=== PATIENT | female | born 1975 | race Caucasian/White ===

== ENCOUNTER 2021-12-16 19:30 | Emergency (ER) | payer MEDICARE, MEDICAID, SELFPAY ==
--- NOTE | ~2021-12-16 | XR_ITS ---
EXAMINATION: XR CHEST CLINICAL INFORMATION: Seizure COMPARISON: Chest x-ray 02/21/2009 TECHNIQUE: Frontal view of the chest was obtained. FINDINGS: The lungs are clear. No airspace consolidation, pleural effusion, or pneumothorax. The cardiomediastinal silhouette is within normal limits. No acute osseous injury. XR/XR chest 1V IMPRESSION: Unremarkable examination.
[2021-12-16 19:48] VITALS: BP 105/71; BP 105/78; PULSE 78; PULSE 88; RESP 14; TEMP 36.7; O2SAT 100
[2021-12-16 20:37] LABS: MANUAL DIFF FLAG NO
--- NOTE | 2021-12-16 20:37 | ED.SEIZURE ---
HPI - Seizure General Chief Complaint: Seizure Stated Complaint: seizure Time Seen by Provider: 12/16/21 20:15 Source: patient, family and EMS Mode of arrival: EMS Limitations: physical limitation History of Present Illness HPI Narrative: 46-year-old female with a PMH of cognitive impairment, deafness, seizure disorder, PTSD, past aggression presenting via EMS with ticket chopper assembler after a witnessed seizure. Per ticket chopper assembler Florinda, patient had a very active day today and had [employer] for lunch including hamburger, fries, ice cream, and soda. On the car ride home, patient had 45 second witnessed seizure with contorted position and minimal responsiveness. Olericulture Professor pulled into driveway, and sat with patient for approximately 5 minutes while on the phone with 911. Patient remained minimally responsive at this time and was noted to be drooling. Upon arrival of EMS, patient began to become more responsive and was able to communicate via ALS with her ticket chopper assembler. Patient did vomit at this time. Olericulture Professor denies any recent illness, missed doses of medication. Olericulture Professor does report she suspects the active day in combination with increased caffeine intake may have been responsible. She states the patient has not had a witnessed seizure in 8-10 years. MD complaint: seizure Onset (ago): minute(s) Description of Episode: loss of consciousness and tonic-clonic movement Duration of episode: 45 Witnessed: Yes - by Bystander Trauma: No Seizure History: Yes Place: Home Possible Precipitating Event: other (caffiene and physical exertion) Associated symptoms: denies other symptoms Treatments prior to arrival: none Related Data Previous Rx's Medication Instructions Recorded nitrofurantoin 100 mg PO BID UTI #6 caps 12/16/21 monohydrate/macrocrystals 100 mg capsule (Macrobid) Allergies Allergy/AdvReac Type Severity Reaction Status Date / Time lorazepam [From Ativan] Allergy Unknown UNKNOWN Unverified 12/25/19 17:15 Review of Systems Review of Systems: due to cognitive impairment, patient unable to provide a review of systems. Does report stomach ache, which ticket chopper assembler says is a daily occurrence. PMF Social History Social History Advance Directives: No Advance Directives Information Provided: No Physical Exam Vital Signs: Vital Signs: Last Vital Signs Temp 98.0 F 12/16/21 19:48 Pulse 78 12/16/21 19:48 Resp 14 12/16/21 19:48 BP 105/78 12/16/21 19:48 Pulse Ox 100 12/16/21 19:48 O2 Del Method 12/16/21 19:48 BMI result Body Mass Index 20.0 Const: Other: Appearance: Alert. Oriented X3. No acute distress. Eyes: Pupils equal, round and reactive to light. ENT: Right side of tongue mildly edematous and bruised, not actively bleeding. Pharynx normal. Neck: Normal inspection. Neck supple. CVS: Normal heart rate and rhythm. Pulses normal. Respiratory: No respiratory distress. Breath sounds normal. Abdomen: Soft, nondistended and nontender. +BS x4 Skin: Skin warm and dry. Normal skin color. Normal skin turgor. No rashes. Extremities: No lower extremity edema. Neuro: Oriented X 3. No motor deficit. No sensory deficit. Deaf, communicating with ALS Course Course Course Narrative: 46-year-old female with a PMH of cognitive impairment, deafness, seizure disorder, PTSD, past aggression presenting via EMS with ticket chopper assembler after a witnessed seizure. on exam, patient alert and oriented communicating with the Burmese sign language with her ticket chopper assembler, YOLY. Right side of tongue noted to be mildly edematous and bruised, not actively bleeding, no laceration in need of repair. Possible UTI due to presence of leukocytosis esterase and urine WBC, will treat with 3 days of Macrobid. At this time, patient is stable for discharge home with ticket chopper assembler Florinda, with strict return instructions. Labs remarkable for WBC 4.6, HGB 11.4, HCT 32.8 UA remarkable for small leukocyte esterase, high a urine WBC, with 6-10 is squamous epithelial cells. Sample possibly contaminated. But will treat empirically while awaiting culture. XR chest 1V IMPRESSION: Unremarkable examination. MDM - Seizure Lab Data Result diagrams: 12/16/21 20:22 12/16/21 20:22 Labs: Lab Results 12/16/21 12/16/21 12/16/21 Range/Units 20:22 20:22 20:22 WBC 4.6 L (4.8-10.8) X10*3/uL RBC 3.48 L (4.20-5.50) X10*6/uL Hgb 11.4 L (12.0-16.0) g/dl Hct 32.8 L (37.0-47.0) % MCV 94.3 (80.0-98.0) fL MCH 32.8 (27.0-33.0) pg MCHC 34.8 (31.0-35.0) g/dl RDW 11.5 (11.0-16.0) % Plt Count 212 (160-400) X10*3/uL MPV 10.5 (9.4-12.3) fL Immature Gran % (Auto) 0.2 (0.0-0.4) % Neut % (Auto) 58.6 (45-73) % Lymph % (Auto) 24.8 (20-40) % Sumter % (Auto) 11.2 H (2-11) % Eos % (Auto) 3.9 (0-4) % Baso % (Auto) 1.3 (0-2) % Lymph # (Auto) 1.1 L (1.2-4.9) X10*3/uL Sumter # (Auto) 0.5 (0.1-1.2) X10*3/uL Eos # (Auto) 0.2 (0.0-0.4) X10*3/uL Baso # (Auto) 0.1 (0.0-0.2) X10*3/uL Abs Immat Gran (auto) 0.01 (0.00-0.03) X10*3/uL Absolute Neuts (auto) 2.7 (2.0-8.3) x10*3/uL Absolute Nucleated RBC 0.000 (0.0-0.012) X10*3/uL Nucleated RBC % (auto) 0.0 (0.0-0.2) /100WBC Sodium 138 (135-145) mmol/L Potassium 3.7 (3.3-5.1) mmol/L Chloride 101 (96-108) mmol/L Carbon Dioxide 28 (22-29) mmol/L Anion Gap 13 (12-20) BUN 14 (9-16) mg/dL Creatinine 0.74 (0.5-1.4) mg/dL Estim Creat Clear Calc 82.5 Estimated GFR > 60 Random Glucose 102 (60-115) mg/dL Calcium 9.7 (8.4-10.2) mg/dL Magnesium 2.1 (1.6-2.6) mg/dL Total Bilirubin 0.4 (0.0-1.0) mg/dL Direct Bilirubin 0.2 (0.0-0.5) mg/dL AST 16 (5-31) U/L ALT 11 (0-31) U/L Alkaline Phosphatase 73 (39-117) U/L Total Creatine Kinase 81 (26-140) U/L Total Protein 6.5 (6.5-8.0) g/dL Albumin 4.0 (3.5-5.0) g/dL Urine Color Urine Appearance Urine pH (5.0-9.0) Ur Specific [place] (1.005-1.025) Urine Protein (Neg-Trace) mg/dL Urine Glucose (UA) (Negative) mg/dL Urine Ketones (Negative) mg/dL Urine Blood (Negative) Urine Nitrite (Negative) Ur Leukocyte Esterase (Negative) Urine RBC (0-2) /HPF Urine WBC (0-5) /HPF Ur Squamous Epith Cells (0-2) /HPF Urine Bacteria (None Seen) Hyaline Casts (0-2) /LPF Urine Opiates Screen (Not Detect) Urine Fentanyl Screen (Not Detect) Ur Barbiturates Screen (Not Detect) Ur Phencyclidine Scrn (Not Detect) Ur Amphetamines Screen (Not Detect) U Benzodiazepines Scrn (Not Detect) Urine Cocaine Screen (Not Detect) U Marijuana (THC) Screen (Not Detect) COVID-19 (KEVIN) Negative (Negative) COVID-19 Clin Com See Note 12/16/21 12/16/21 Range/Units 21:00 21:00 WBC (4.8-10.8) X10*3/uL RBC (4.20-5.50) X10*6/uL Hgb (12.0-16.0) g/dl Hct (37.0-47.0) % MCV (80.0-98.0) fL MCH (27.0-33.0) pg MCHC (31.0-35.0) g/dl RDW (11.0-16.0) % Plt Count (160-400) X10*3/uL MPV (9.4-12.3) fL Immature Gran % (Auto) (0.0-0.4) % Neut % (Auto) (45-73) % Lymph % (Auto) (20-40) % Sumter % (Auto) (2-11) % Eos % (Auto) (0-4) % Baso % (Auto) (0-2) % Lymph # (Auto) (1.2-4.9) X10*3/uL Sumter # (Auto) (0.1-1.2) X10*3/uL Eos # (Auto) (0.0-0.4) X10*3/uL Baso # (Auto) (0.0-0.2) X10*3/uL Abs Immat Gran (auto) (0.00-0.03) X10*3/uL Absolute Neuts (auto) (2.0-8.3) x10*3/uL Absolute Nucleated RBC (0.0-0.012) X10*3/uL Nucleated RBC % (auto) (0.0-0.2) /100WBC Sodium (135-145) mmol/L Potassium (3.3-5.1) mmol/L Chloride (96-108) mmol/L Carbon Dioxide (22-29) mmol/L Anion Gap (12-20) BUN (9-16) mg/dL Creatinine (0.5-1.4) mg/dL Estim Creat Clear Calc Estimated GFR Random Glucose (60-115) mg/dL Calcium (8.4-10.2) mg/dL Magnesium (1.6-2.6) mg/dL Total Bilirubin (0.0-1.0) mg/dL Direct Bilirubin (0.0-0.5) mg/dL AST (5-31) U/L ALT (0-31) U/L Alkaline Phosphatase (39-117) U/L Total Creatine Kinase (26-140) U/L Total Protein (6.5-8.0) g/dL Albumin (3.5-5.0) g/dL Urine Color Yellow Urine Appearance Clear Urine pH 5.0 (5.0-9.0) Ur Specific [place] 1.015 (1.005-1.025) Urine Protein Negative (Neg-Trace) mg/dL Urine Glucose (UA) Negative (Negative) mg/dL Urine Ketones Negative (Negative) mg/dL Urine Blood Negative (Negative) Urine Nitrite Negative (Negative) Ur Leukocyte Esterase Small (1+) H (Negative) Urine RBC 0-2 (0-2) /HPF Urine WBC 11-20 H (0-5) /HPF Ur Squamous Epith Cells 6-10 (0-2) /HPF Urine Bacteria None Seen (None Seen) Hyaline Casts 0-2 (0-2) /LPF Urine Opiates Screen Not Detected (Not Detect) Urine Fentanyl Screen Not Detected (Not Detect) Ur Barbiturates Screen Not Detected (Not Detect) Ur Phencyclidine Scrn Not Detected (Not Detect) Ur Amphetamines Screen Not Detected (Not Detect) U Benzodiazepines Scrn Not Detected (Not Detect) Urine Cocaine Screen Not Detected (Not Detect) U Marijuana (THC) Screen Not Detected (Not Detect) COVID-19 (KEVIN) (Negative) COVID-19 Clin Com Critical Care Time Critical Care Time Critical Care Time: No Discharge Plan Discharge Clinical Impression: Generalized seizure, UTI (urinary tract infection) Patient Disposition: Home, Self-Care Instructions: Urinary Tract Infection in Women (ED), Recurrent Seizures in Adults (ED) Additional Instructions: Please take antibiotic as prescribed for urinary tract infection. Please follow-up with Neurology in the next 2-3 days. If you develop new or worsening symptoms call 911 or come back to the ER for further evaluation. Prescriptions: New nitrofurantoin monohyd/m-cryst [Macrobid] 100 mg capsule 100 mg PO BID Qty: 6 0RF Rx Instructions: must administer with a meal/food Interventions: ED Discharge Assessment Last Done: 12/16/21 22:08 Discharge Date/Time: 12/16/21 22:08
[2021-12-16 20:45] LABS: Basophils Absolute Auto 0.1 X10*3/uL (0.0-0.2); Basophils Percent Auto 1.3 % (0-2); Eosinophils Absolute Auto 0.2 X10*3/uL (0.0-0.4); Eosinophils Percent Auto 3.9 % (0-4); Hematocrit 32.8 % (37.0-47.0); Hemoglobin 11.4 g/dl (12.0-16.0); Imm Gran Abs Auto 0.01 X10*3/uL (0.00-0.03); Imm Gran Pct Auto 0.2 % (0.0-0.4); Lymphocytes Absolute Auto 1.1 X10*3/uL (1.2-4.9); Lymphocytes Percent Auto 24.8 % (20-40); Mean Corpuscular HGB Conc 34.8 g/dl (31.0-35.0); Mean Corpuscular Hemoglobin 32.8 pg (27.0-33.0); Mean Corpuscular Volume 94.3 fL (80.0-98.0); Mean Platelet Volume 10.5 fL (9.4-12.3); Monocytes Absolute Auto 0.5 X10*3/uL (0.1-1.2); Monocytes Percent Auto 11.2 % (2-11); Neutrophils Absolute Auto 2.7 x10*3/uL (2.0-8.3); Neutrophils Percent Auto 58.6 % (45-73); Platelet Count 212 X10*3/uL (160-400); Red Blood Count 3.48 X10*6/uL (4.20-5.50); Red Cell Distribution Width 11.5 % (11.0-16.0); White Blood Count 4.6 X10*3/uL (4.8-10.8)
[2021-12-16 20:54] LABS: Alanine Aminotransferase 11 U/L (0-31); Alkaline Phosphatase 73 U/L (39-117); Anion Gap 13 (12-20); Aspartate Amino Transferase 16 U/L (5-31); Bilirubin Direct 0.2 mg/dL (0.0-0.5); Bilirubin Total 0.4 mg/dL (0.0-1.0); Blood Urea Nitrogen 14 mg/dL (9-16); Calcium 9.7 mg/dL (8.4-10.2); Carbon Dioxide 28 mmol/L (22-29); Chloride 101 mmol/L (96-108); Creatinine Clr Calc Pharmacy 82.5; Estimated Glomerular Filt Rate > 60; Glucose Random 102 mg/dL (60-115); Magnesium 2.1 mg/dL (1.6-2.6); Potassium 3.7 mmol/L (3.3-5.1); Sodium 138 mmol/L (135-145); Total Protein 6.5 g/dL (6.5-8.0)
[2021-12-16 20:55] LABS: COVID-19 Test Negative (Negative); IDNOW Serial# 55D5AD1C
[2021-12-16] MEDS: 0.9 % Sodium Chloride 1,000 ML 999 ML IVCONT (21:05)
[2021-12-16 21:08] LABS: Appearance Urine Clear; Color Urine Yellow; Glucose Urine UA Negative (Negative); Leukocyte Esterase Urine Small (1+) (Negative); Nitrite Urine Negative (Negative); Specific Gravity - Urine 1.015 (1.005-1.025); Urine Blood Negative (Negative); Urine Ketones Negative (Negative); Urine Protein Negative (Neg-Trace)
[2021-12-16 21:13] LABS: Bacteria Urine None Seen (None Seen); Hyaline Casts Urine 0-2 /LPF (0-2); RBC Urine 0-2 /HPF (0-2); UACC Culture Trigger YES
[2021-12-16 21:27] LABS: Amphetamine Screen Urine Not Detected (Not Detect); Barbiturates, Urine Not Detected (Not Detect); Benzodiazepines Screen Urine Not Detected (Not Detect); Cannabinoid Screen Urine Not Detected (Not Detect); Cocaine Screen Urine Not Detected (Not Detect); Fentanyl, urine Not Detected (Not Detect); Opiate Screen Urine Not Detected (Not Detect); Phencyclidine Screen Urine Not Detected (Not Detect)
== END 2021-12-16 22:08 | disposition home or self-care (01) ==
PROVIDERS: Physician Assistant; Emergency Provider Emergency Medicine; PCP Nurse Practitioner Family
DX: R56.9 Unspecified convulsions (principal); N39.0 Urinary tract infection, site not specified; Z20.822 Contact with and (suspected) exposure to COVID-19; Z79.899 Other long term (current) drug therapy
CPT/HCPCS: 71045; 80048; 80076; 80307; 81001; 82550; 83735; 85025; 87086; 87635; 99283

== ENCOUNTER 2025-01-05 20:37 | Emergency (ER) | payer MEDICARE, MEDICAID, SELFPAY ==
[2025-01-05 20:42] VITALS: BP 93/52; PULSE 66; RESP 18; TEMP 36.3; O2SAT 97; BMI 19.2
--- OUTSIDE RECORDS SUMMARY | 2025-01-06 02:32 | XMS_ITS | Clinical Summary ---
Author Organization [facility] Address [address] [place] [phone] Phone Care Team Providers Care Assistant Buyer Name Role Phone Jean Brennan MD Unavailable Tera Mccollum MD Primary Care Provider [phone] Allergies Active Allergy Reactions Criticality Noted Date Comments Feathers Unknown 02/24/2016 Lorazepam Unknown 02/24/2016 Medications risperiDONE (RISPERDAL) 1 MG tablet Take 1 mg by mouth daily. Active lamoTRIgine (LAMICTAL) 100 MG IMMEDIATE release tablet Take 100 mg by mouth 2 (two) times a day. Active clonazePAM (KLONOPIN) 1 MG tablet 1/2 tab qam and 1 tab qhs 11/07/19 24 Active omeprazole (PRILOSEC) 20 MG capsuleIndicat ions:Gastroeso phageal reflux disease Take 1 capsule (20 mg total) by mouth daily. 90 capsule 3 12/25/19 25 Active clonazePAM (KLONOPIN) 0.5 MG tablet Take 0.5 mg by mouth nightly at bedtime. at bedtime. And PRN 06/23/19 23 025 Discontinued omeprazole (PRILOSEC) 20 MG capsuleIndicat ions:Gastroeso phageal reflux disease Take 1 capsule by mouth once daily 90 capsule 07/15/19 25 025 Discontinued(Re order) Active Problems Problem Noted Date Diagnosed Date Dyslipidemia 12/24/2024 Assessment & Plan (12/24/2024 8:38 AM EDT): Thank going yearly assessment of cholesterol panel. Regurgitant esophagitis 12/24/2024 Routine general medical exam ination at a health care facility 12/19/2023 Assessment & Plan (12/24/2024 8:38 AM EDT): Overall she is doing quite well, the omeprazole might not be helping with the regurgitation. Will refer the patient to gastroenterology to further investigate for example performing EGD. Mostly its postprandial regurgitation. The rest of the exam is unremarkable. Assessment & Plan (12/19/2023 3:36 PM EDT): Exam only positive for rhinorrhea, no erythema of of the throat or oropharynx, health maintenance otherwise up-to-date. We can reassess labs next year on repeat physical. Rhinorrhea 12/19/2023 Assessment & Plan (12/19/2023 3:37 PM EDT): Rhinorrhea and low-grade fever, check RSV, COVID 19 and flu and will call back to the attended if positive. Gastroesophageal reflux disease 07/17/2022 Assessment & Plan (07/17/2022 1:58 AM EDT): Continue omeprazole History of meningitis 11/03/2021 Onychomycosis 11/03/2021 Umbilical hernia without obstruction and without gangrene 03/11/2020 Assessment & Plan (03/11/2020 12:04 PM EST): Continue to monitor Seizure disorder 04/10/2017 Assessment & Plan (12/24/2024 8:37 AM EDT): Will obtain a lamotrigine level today and we can share this with the neurology team. Assessment & Plan (12/19/2023 3:37 PM EDT): Seizure disorder managed by Dr. Kuo from [facility] neurology. Assessment & Plan (07/17/2022 1:58 AM EDT): Check labs today. Await neuro consult Assessment & Plan (03/11/2020 12:05 PM EST): Stable, no recent seizure Uterine fibroid Premenstrual dysphoric disorder Pervasive developmental disorder Assessment & Plan (12/14/2020 1:09 PM EDT): After review of the chart and assessment of the patient we cannot find any acute or chronic changes within the past year and certify that the patient's medical issues are unchanged from previous. Mental disability History of obesity Deafness Overview (04/09/2017): s/p meningitis in infancy PTSD (post-traumatic stress disorder) Assessment & Plan (07/17/2022 1:58 AM EDT): Continue regular follow up with psychiatry Assessment & Plan (03/11/2020 12:04 PM EST): Stable, improved with getting back to regular routine Encounters Date Type Department Care Team Description 12/24/2024 8:45 AM EDT - 12/24/2024 11:59 PM EDT Hospital Encounter [facility] [address] [place] [address] Tera Mccollum MD Discharge Disposition: Home or Self Care 12/24/2024 8:00 AM EDT Office Visit [facility] [address] [place] [address] Tera Mccollum MD Need for hepatitis C screening test (Primary Dx); Screening for human immunodeficiency virus; Routine general medical examination at a health care facility; Seizure disorder; Dyslipidemia; Regurgitant esophagitis from Last 3 Months Immunizations Immunization Administration Dates Next Due COVID-19 (Pre-01/29) Pfizer Vaccine, mRNA, PF 06/28/2020,06/15/2020 INFLUENZA, SPLIT VIRUS, TRIVALENT PF 12/24/2024, 02/24/2016 INFLUENZA, SPLIT VIRUS, TRIV ALENT W/ PRESERVATIVE IM 02/25/2013,12/21/2011 Influenza Quadrivalent Prese rvative Free IM 03/11/2020,04/10/2017,02/03/2015,2013 Influenza, Unspecified Formulation 01/04/2011,,02/26/2007 Tdap 03/11/2020 Family History Medical History Relation Comments Asthma Brother Cancer Father unsure what kind Asthma Mother Eczema Mother Hypotension Mother Suicide Nephew 2017 Relation Status Comments Brother Alive Father Mother Nephew Social History Tobacco Use Types Packs/Day Years Used Date Smoking Tobacco: Never Passive Smoke Exposure: Never Smokeless Tobacco: Never Alcohol Use Standard Drinks/Week Comments No 0 (1 standard drink = 0.6 oz pur e alcohol) Education Answer Date Recorded Are you interested in more education? Not on ahmet e 08/11/2022 Are you concerned about learning? Not on file 08/11/2022 No 08/11/2022 No 08/11/2022 Digital Access Answer Date Recorded No 09/01/2022 No 09/01/2022 Reliable internet access at home? Not on file 09/01/2022 Device with a working camera? Not on file Intimate Partner Violence Answer Date R ecorded Denied Basic Needs Not on file 12/24/2024 In the past 12 months have y ou been in a relationship with a person who hurts, threatens, or tries to control you? No 12/24/2024 Worried food would run out Not on file 12/24 In the past 12 months have y ou been in a relationship with a person who hurts, threatens, or tries to control you? No 12/24/2024 Comments Unknown Sex and Gender Information Value Date Recorded Sex Assigned at Not on file Legal Sex Female 6:22 PM EST Gender Identity Not on file Sexual Orientation Not on file Last Filed Vital Signs Vital Sign Reading Time Taken Comments Blood Pressure 110/60 12/24/2024 7:50 AM EDT Pulse 75 12/24/2024 7:50 AM EDT Temperature 37.3 C (99.1 F) 12/19/2023 2:49 PM EDT Respiratory Rate 16 12/24/2024 7:50 AM EDT Oxygen Saturation 99% 12/24/2024 7:50 AM EDT Inhaled Oxygen Concentration - - Weight 51.8 kg (114 lb 3.2 oz) 12/24/2024 7:50 A M EDT Height 162 cm (5' 3.78 ) 12/24/2024 7:50 AM EDT Body Mass Index 19.74 12/24/2024 7:50 AM EDT Plan of Treatment Upcoming Encounters Date Type Department Care Team (Late st Contact Info) Description 12/25/2025 8:30 AM EDT Office Visit [facility] [address] [place] [address] Tera Mccollum MD [address] [place] [address] Health Maintenance Due Date Last Done Comments COLOGUARD 2021 FIT TEST 2021 FOBT 2021 SIGMOIDOSCOPY 2021 VIRTUAL COLONOSCOPY 2021 COVID-19 VACCINE ( season) 2024 06/28/2020, 06/15/2020, 05/24/2020 DEPRESSION SCREENING 12/24/2025 12/24/2024 MAMMOGRAM 12/24/2025 12/25/2023, 10/08, 07/21/2021, Additional history exists PAP SMEAR 12/30/2025 12/30/2020, 11/0 04/2016, 03/09/2014 LIPID PANEL 12/24/2029 12/24/2024, 050 11/2018, 08/14/2018, Additional history exists Adult Td,Tdap Booster 03/11/2030 03/11/2020 COLONOSCOPY 11/12/2033 11/13/2023, 11/13/2023 COLORECTAL CANCER SCREENING 11/12/2033 HIV ONE-TIME SCREENING (18-65 YEARS) 12/24/2034 Postponed from 1994 (Not Clinically Appropriate) HEPATITIS C SCREENING 12/25/2035 Postpo leann from 1994 (Not Clinically Appropriate) INFLUENZA VACCINE Completed 12/24/2024, , 03/11/2020, Additional history exists SMOKING STATUS SCREENING (Once After 26 Yrs) Completed 12/24/2024 HEPATITIS A VACCINES Aged Out No long er eligible based on patient's age to complete this topic HIB VACCINES Aged Out No longer eligi ble based on patient's age to complete this topic MENINGOCOCCAL VACCINES (ACWY) Aged Out No longer eligible based on patient's age to complete this topic MENINGOCOCCAL VACCINES (B) Aged Out N o longer eligible based on patient's age to complete this topic PNEUMOCOCCAL VACCINES (0-49 years) Aged Out No longer eligible based on patient's age to complete this topic Medical Devices Not on file Procedures Procedure Name Priority Date/Time Associated Diagnosis Comments LIPID PANEL Routine 12/24/2024 8:45 AM EDT Routine general medical examination at a [facility] Dyslipidemia COMPREHENSIVE METABOLIC PANEL Routine 12/24/2024 8:45 AM EDT Routine general medical examination at a [facility] facility LAMOTRIGINE LEVEL Routine 12/24/2024 8:4 5 AM EDT Seizure disorder MAMMOGRAPHY Routine 12/25/2023 1:54 PM EDT COLONOSCOPY FOR RESULT ENTRY ONLY Routine 11/13/2023 1:02 PM EDT PAP TEST Routine 12/30/2020 from Last 3 Months or Most Recently Relevant to Health Maintenance Results * Comprehensive metabolic panel (12/24/2024 8:45 AM EDT) SODIUM 141 133 - 146 mmol/L [facility] POTASSIUM 4.9 3.3 - 5.1 mmol/L [facility] CHLORIDE 106 96 - 108 mmol/L [facility] CO2 27 21 - 35 mmol/L [facility] BUN 11 6 - 19 mg/dL [facility] CREATININE 0.60 0.5 - 1.5 mg/dL [facility] GLUCOSE 82 70 - 99 mg/dL [facility] ALBUMIN 4.5 3.9 - 4.8 g/dL [facility] TOTAL PROTEIN 7.6 6.5 - 8.0 g/dL [facility] CALCIUM 10.1 8.4 - 10.3 mg/dL [facility] ALKALINE PHOSPHATASE 113 39 - 117 U/L [facility] TOTAL BILIRUBIN 0.3 0.0 - 1.2 mg/dL [facility] AST 20 0 - 37 U/L [facility] ALT 9 0 - 40 U/L [facility] GLOBULIN 3.1 1 - 4.8 g/dL [facility] EGFR 111 >59 mL/min/1.7 3m2 [facility] Comment:Estimated glomerular filtration rate calculated using the CKD-EPI refit equation. ANION GAP 13 10 - 20 mmol/L [facility] Blood 12/24/2024 8:45 AM EDT 12/24/2024 8:52 AM EDT Tera Mccollum MD LAB BLOOD ORDERABLES Final Resul t Performing Organization Address City/[facility] Co de Phone Number [address] [address] * (ABNORMAL) Lamotrigine level (12/24/2024 8:45 AM EDT) LAMOTRIGINE 2.5(L) 4.0 - 18.0 mcg/mL [facility] Comment:This test was develo ped and its performance characteristics determined by the [facility]. It has not been cleared or approved by the US Food and Drug Administration. This laboratory is certified under CLIA as qualified to perform high complexity clinical laboratory testing. Blood 12/24/2024 8:45 AM EDT 12/24/2024 8:52 AM EDT us Tera Mccollum MD LAB BLOOD ORDERABLES Final Resul t [address] [address] * (ABNORMAL) Lipid panel (12/24/2024 8:45 AM EDT) HDL 75 mg/dL [facility] Comment: Interpretation <40 mg/dL: Low HDL cholesterol (major risk factor for CHD) Greater than or equal to 60 mg/dL: High HDL cholesterol ( negative risk factor for CHD) HDL - cholesterol is affected by a number of factors, e.g. smoking, excerise, hormones, sex and age. CHOLESTEROL 201 0 - 240 mg/dL [facility] TRIGLYCERIDES 58 30 - 160 mg/dL [facility] LDL 114 50 - 129 mg/dL [facility] Comment: LDL levels in terms of risk for coronary heart disease: <100 mg/dL: Optimal 100-129 mg/dL: Near or above optimal 130-159 mg/dL: Borderline high 160-189 mg/dL: High >190 mg/dL: Very High CARDIAC RISK RATIO 2.7(L) 3.3 - 4.4 [facility] Blood 12/24/2024 8:45 AM EDT 12/24/2024 8:52 AM EDT Tera Mccollum MD LAB BLOOD ORDERABLES Final Resul t [facility] [address] [place] [address] * HM MAMMOGRAPHY FOR RESULT ENTRY ONLY (12/25/2023 1:54 PM EDT) Tera Mccollum MD HEALTH MAINTENANCE Final Result * HM COLONOSCOPY FOR RESULT ENTRY ONLY (11/13/2023 1:02 PM EDT) Historical [facility] HE[facility] MAINTENANCE Edited Result - Final * Pap Test (12/30/2020) Result - External See Scanned Results Comment:NILM, HPV neg Historical [facility] CYTOLOGY ORDERABLES Edite d Result - Final from Last 3 Months or Most Recently Relevant to Health Maintenance Insurance MEDICARE PART A & B Member Subscriber Plan / Payer (Ef fective 1999-Present) Name:Eva Tony Member ID:[id number] Relation to Subscriber:Self Name:Eva Tony Subscriber ID:[id number] Payer ID:[id number] Group ID:Not on file Type:Medicare Address: [employer] [address] [place] [address] [place] B Member Subscriber Plan / Payer ( fective 1999-) Name:Eva Tony Member ID:[id number] Relation to Subscriber:Self Name:Eva Tony Subscriber ID:[id number] Payer ID:[id number] Group ID:Not on file Type:Medicare Address: [employer] [address] [place] [phone] [facility] MEDICARE PART A & B [place] [facility] Member Subscriber Plan / Payer (Ef fective 1999-Present) Name:Eva Tony Member ID:[id number] Relation to Subscriber:Self Name:Eva Tony Subscriber ID:[id number] Payer ID:[id number] Group ID:Not on file Type:Medicare Address: [employer] [address] [place] [address] [place] PART A [place] B Member Subscriber Plan / Payer (Ef fective 1999-Present) Name:Eva Tony Member ID:[id number] Relation to Subscriber:Self Name:Eva Tony Subscriber ID:[id number] Payer ID:[id number] Group ID:Not on file Type:Medicare Address: [employer] [address] [place] [address] [place] PART A & B Member Subscriber Plan / Payer ( fective 1999-Present) Name:Eva Tony Member ID:[id number] Relation to Subscriber:Self Name:Eva Tony Subscriber ID:[id number] Payer ID:[id number] Group ID:Not on file Type:Medicare Address: [employer] [address] [place], [place] [address]HEALTH MEDICARE PART A & B Member Subscriber Plan / Payer ( fective 1999-Present) Name:Eva Tony Member ID:[id number] Relation to Subscriber:Self Name:Eva Tony Subscriber ID:[id number] Payer ID:[id number] Group ID:Not on file Type:Medicare Address: [employer] [address] [place], [place] [id number] [place], [place] [address]HEALTH MEDICARE PART A & B [facility] Care Teams Assistant Buyer Relationship Specialty Start Date End Date Tera Mccollum MD [address] [place] [address] PCP - General Internal Medicine 09/18/22 Jean Brennan MD [address] [place] [address] Psychiatry 07/21/21 Additional Source Comments The information contained in this document represents components of the legal health record. It is not the complete legal health record.[facility]
--- NOTE | 2025-01-06 03:06 | ED.GENADULT ---
HPI - General Adult General Chief complaint: Wound/Laceration Stated complaint: blister lt foot, opened up & wont stop bleeding Time Seen by Provider: 01/06/25 02:19 Source: family Limitations: other (Hearing and vision impaired) History of Present Illness ED Provider: Mercedes Moon PA-C HPI narrative: 49-year-old female who is both hearing and visually impaired, presents with her caregiver with a bleeding blister on the sole of her left foot. Per her caregiver, they were unable to control the bleeding at home. No one was aware that she had a blister on the bottom of the foot. She is not on a blood thinner. Related Data Previous Rx's ?Medication ?Instructions ?Recorded nitrofurantoin 100 mg PO BID UTI #6 caps 12/16/21 monohydrate/macrocrystals 100 mg capsule (Macrobid) Allergies Allergy/AdvReac Type Severity Reaction Status Date / Time lorazepam (From Ativan) Allergy Unknown UNKNOWN Verified 01/05/25 20:48 Review of Systems Review of Systems: Yes all other systems are reviewed and are negative Constitutional: Constitutional: Denies fatigue and Denies fever(s) Musculoskeletal: Musculoskeletal: Denies arthralgias and Denies joint swelling Integumentary/Breasts: Skin/Breast: Denies erythema, Denies skin swelling, Denies skin ulcer, Denies sores and Denies wounds Endocrine: Endocrine: Denies fatigue PMFSH Past Medical History Attestation statement: The following information was validated with the patient. Social History Social History Unable to assess alcohol history related to: Unknown Smoked in Last 30 Days: No Use of substances other than those prescribed or required for medical reasons: Unknown Advance Directives: No Advance Directives Information Provided: Yes Physical Exam ED Vital Signs: Vital Signs - 24 hr 01/05/25 20:42 Temperature 97.3 F Pulse Rate 66 Respiratory Rate 18 Blood Pressure 93/52 L Pulse Oximetry 97 Oxygen Delivery Method Room Air BMI result Body Mass Index 19.2 Const Other: Alert well-appearing Resp Effort & Inspection: normal respiratory effort Cardio Other: Normal peripheral perfusion Skin Other: Warm dry no rash Neuro General: gait normal Extrem Other: There is a blister that has ruptured on the plantar surface of the left foot, inferior to the 4th toe, no longer bleeding no overlying erythema, warmth or purulence from the site. Psych Other: Cooperative Medical Decision Making Medical Decision Making MDM Narrative: 49-year-old female who is both hearing and visually impaired, presents with her caregiver with a bleeding blister on the sole of her left foot. Per her caregiver, they were unable to control the bleeding at home. No one was aware that she had a blister on the bottom of the foot. She is not on a blood thinner. No relevant chronic issues History: Per the caregiver I have considered the following differential diagnoses: Ulcer, blister, laceration, puncture wound, excoriation, cellulitis, purulent cellulitis Plan: It appears the patient had a blood blister that ruptured, it is not bleeding, the area was cleaned and dressed with clean gauze dressing. No indication for imaging or labs. Differential Diagnosis Differential Diagnoses: The differential diagnosis associated with the presentation includes See medical decision-making Admission/Observation Consideration of admission/observation: Escalation of care including admission/observation considered Not applicable Discharge Plan Discharge Clinical Impression: Blister of foot, right Patient Disposition: Home, Self-Care Instructions: Blister (ED) Additional Instructions: The blister was covered with a gauze dressing. The bleeding has stopped. See home care instructions. Keep the site clean and dry. Follow up with primary care as needed. I would leave this initial dressing on for at least a full day. Prescriptions: No Action nitrofurantoin monohyd/m-cryst [Macrobid] 100 mg capsule 100 mg PO BID Qty: 6 0RF Rx Instructions: must administer with a meal/food Interventions: ED Discharge Assessment Last Done: 01/06/25 03:41 Discharge Date/Time: 01/06/25 03:30 Print Language: [place] Sign Language
[2025-01-06 03:27] VITALS: BP 106/64; PULSE 75; RESP 18; TEMP 36.3; O2SAT 100
[2025-01-06 03:41] VITALS: BP 106/64; PULSE 75; RESP 18; TEMP 36.3; O2SAT 100
== END 2025-01-06 03:30 | disposition home or self-care (01) ==
PROVIDERS: Emergency Provider Emergency Medicine; PCP Internal Medicine
DX: S90.821A Blister (nonthermal), right foot, initial encounter (principal); X58.XXXA Exposure to other specified factors, initial encounter; Y93.9 Activity, unspecified; Y92.9 Unspecified place or not applicable
CPT/HCPCS: 99282; 99284

== ENCOUNTER 2025-03-20 21:06 | Emergency (ER) | payer MEDICARE, MEDICAID, SELFPAY ==
--- NOTE | ~2025-03-20 | XR_ITS ---
CLINICAL HISTORY: infection osteo? Left foot three views Comparison: None provided Findings: No acute fracture or dislocation. No focal bony abnormality. No radiopaque foreign body. Impression: No acute bony abnormality This document has been electronically signed by: Brandon Smith MD on 03/20/2025 23:16:05
[2025-03-20 21:33] VITALS: BP 98/62; PULSE 68; RESP 18; TEMP 36.3; O2SAT 100; BMI 19.6
--- OUTSIDE RECORDS SUMMARY | 2025-03-20 22:53 | XMS_ITS | Clinical Summary ---
Author Organization [facility] Address [address] [place] [address] Phone Care Team Providers Care Contract Engineer Name Role Phone Jean Brennan MD Unavailable [phone] Tera Mccollum MD Primary Care Provider [phone] Allergies Active Allergy Reactions Criticality Noted Date Comments Feathers Unknown 02/24/2016 Lorazepam Unknown 02/24/2016 Medications risperiDONE (RISPERDAL) 1 MG tablet Take 1 mg by mouth daily. Active lamoTRIgine (LAMICTAL) 100 MG IMMEDIATE release tablet Take 100 mg by mouth 2 (two) times a day. Active clonazePAM (KLONOPIN) 1 MG tablet 1/2 tab qam and 1 tab qhs 11/07/2023 Active omeprazole (PRILOSEC) 20 MG capsuleIndicati ons:Gastroesoph ageal reflux disease Take 1 capsule (20 mg total) by mouth daily. 90 capsule 3 12/24/2024 Active Active Problems Problem Noted Date Diagnosed Date [...] Seizure disorder managed by Dr. Kuo from [facility] neurology. Assessment & Plan (07/17/2022 1:58 AM [...] 12/24/2024 11:59 PM EDT Hospital Encounter [facility] [address] [facility] [address] Tera Mccollum MD Discharge Disposition: Home or Self Care 12/24/2024 8:00 AM EDT Office Visit [facility] Internal Medicine [address] [facility] [place] [address] Tera Mccollum MD Need for hepatitis C [...] Mother Eczema Mother Hypotension Mother Suicide Nephew 2016 Relation Status Comments Brother Alive Father Mother [...] Description 12/25/2025 8:30 AM EDT Office Visit [facility] Internal Medicine [address] [place] [address] Tera Mccollum MD [address] [place] [address] [email or web address] Maintenance Due Date Last Done Comments COLOGUARD 2021 FIT TEST 2021 FOBT 2021 SIGMOIDOSCOPY 2021 VIRTUAL COLONOSCOPY 2021 COVID-19 VACCINE (2024- season) 2024 06/28/2020, 06/15/2020, 05/24/2020 DEPRESSION SCREENING 12/24/2025 12/24/2024 MAMMOGRAM 12/24/2025 12/25/2023, 10/08, 07/21/2021, Additional history exists PAP SMEAR 12/30/2025 12/30/2020, 110 04/2016, 03/09/2014 LIPID PANEL 12/24/2029 12/24/2024, 050 [...] EDT Routine general medical examination at a health care facility Dyslipidemia COMPREHENSIVE METABOLIC PANEL (CMP) Routine 12/24/2024 8:45 AM EDT Routine general medical examination at a health care facility LAMOTRIGINE LEVEL Routine 12/24/2024 8:4 5 AM EDT Seizure disorder HM MAMMOGRAPHY Routine 12/25/2023 1:54 PM EDT COLONOSCOPY FOR RESULT ENTRY ONLY Routine 11/13/2023 1:02 PM EDT PAP TEST Routine 12/30/2020 from Last 3 Months or Most Recently Relevant to Health Maintenance Results * Comprehensive metabolic panel (12/24/2024 8:45 AM EDT) SODIUM 141 133 - 146 mmol/L [facility] POTASSIUM 4.9 3.3 - 5.1 mmol/L [facility] CHLORIDE 106 96 - 108 mmol/L [facility] CO2 27 21 - 35 mmol/L [facility] BUN 11 6 - 19 mg/dL [facility] CREATININE 0.60 0.5 - 1.5 mg/dL [facility] GLUCOSE 82 70 - 99 mg/dL [facility] ALBUMIN 4.5 3.9 - 4.8 g/dL [facility] TOTAL PROTEIN 7.6 6.5 - 8.0 g/dL [facility] CALCIUM 10.1 8.4 - 10.3 mg/dL [facility] ALKALINE PHOSPHATASE 113 39 - 117 U/L [facility] TOTAL BILIRUBIN 0.3 0.0 - 1.2 mg/dL [facility] AST 20 0 - 37 U/L [facility] ALT 9 0 - 40 U/L [facility] GLOBULIN 3.1 1 - 4.8 g/dL [facility] EGFR 111 >59 mL/min/1.7 3m2 [facility] Comment:Estimated glomerular filtration rate calculated using the CKD-EPI refit equation. ANION GAP 13 10 - 20 mmol/L [facility] Blood 12/24/2024 8:45 AM EDT 12/24/2024 8:52 AM EDT us Tera Mccollum MD LAB BLOOD BKR ORDERABLES Final R esult Performing Organization Address City/[facility]/ZIP Co de Phone Number [facility] [address] [place] [address] * (ABNORMAL) Lamotrigine level (12/24/2024 8:45 AM EDT) LAMOTRIGINE 2.5(L) 4.0 - 18.0 mcg/mL [facility] Comment:This test was develo ped and its performance characteristics determined by the [facility]. It has not been cleared or approved by the US Food and Drug Administration. This laboratory is certified under CLIA as qualified to perform high complexity clinical laboratory testing. Blood 12/24/2024 8:45 AM EDT 12/24/2024 8:52 AM EDT us Tera Mccollum MD LAB BLOOD BKR ORDERABLES Final R esult Performing Organization Address City/[facility]/ZIP Co de Phone Number [address] [address] * (ABNORMAL) Lipid panel (12/24/2024 8:45 AM EDT) HDL 75 mg/dL [facility] Comment: Interpretation <40 mg/dL: Low HDL cholesterol (major risk factor for CHD) Greater than or equal to 60 mg/dL: High HDL cholesterol ( negative risk factor for CHD) HDL - cholesterol is affected by a number of factors, e.g. smoking, excerise, hormones, sex and age. CHOLESTEROL 201 0 - 240 mg/dL [facility] TRIGLYCERIDES 58 30 - 160 mg/dL [facility] LDL 114 50 - 129 mg/dL [facility] Comment: LDL levels in terms of risk for coronary heart disease: <100 mg/dL: Optimal 100-129 mg/dL: Near or above optimal 130-159 mg/dL: Borderline high 160-189 mg/dL: High >190 mg/dL: Very High CARDIAC RISK RATIO 2.7(L) 3.3 - 4.4 C [facility] Blood 12/24/2024 8:45 AM EDT 12/24/2024 8:52 AM EDT Tera Mccollum MD LAB BLOOD BKR ORDERABLES Final R esult [address] [address] * MAMMOGRAPHY FOR RESULT ENTRY ONLY (12/25/2023 1:54 PM EDT) Tera Mccollum MD HEALTH MAINTENANCE Final Result * HM COLONOSCOPY FOR RESULT ENTRY ONLY (11/13/2023 1:02 PM EDT) Historical Provider HEALTH MAINTENANCE Edited Result - Final * Pap Test (12/30/2020) Result - External See Scanned Results Comment:NILM, HPV neg Historical Provider CYTOLOGY ORDERABLES Edite d Result - Final from Last 3 Months or Most Recently Relevant to Health Maintenance Insurance [place] [id number] [facility] MEDICARE PART A & B [facility] MEDICARE PART A & B [facility] MEDICARE PART A & B [facility] MEDICARE PART A & B [place] MED[place] PART A & [facility] B Member Subscriber Plan / Payer ( fective 1999-) Name:Eva Tony Member ID:[id number] Relation to Subscriber:Self Name:Eva Tony Subscriber ID:[id number] Payer ID:[id number] Group ID:Not on file Type:Medicare Address: [facility] [employer]vas [facility] [address] [place] [address] [place] MEDICARE PART A & B [facility] B [facility] Care Teams Contract Engineer Relationship Specialty Start Date End Date Tera Mccollum MD [address] [place] [id number] PCP - General Internal Medicine 09/18/22 Jean Brennan MD [address] [place] [id number] Psychiatry 07/21/21 Additional Source Comments The information contained in this document represents components of the legal health record. It is not the complete legal health record.[facility]
--- NOTE | 2025-03-20 23:17 | ED_ITS ---
HPI - General Adult General Chief complaint: Extremity Problem Stated complaint: lt foot sore Time Seen by Provider: 03/20/25 22:30 Source: other (Caregiver) Limitations: other (Mental and physical impairment) History of Present Illness ED Provider: Mercedes Moon PA-C HPI narrative: 49-year-old female who is both hearing and visually impaired, presents with her caregiver with a bleeding blister on the sole of her left foot. Patient was seen in December for a blood blister on the bottom of the left foot. Today, the patient's caregiver noticed bleeding at the same site, however, it appears that there is a potential growth at the site that has bleeding. Related Data Previous Rx's ?Medication ?Instructions ?Recorded nitrofurantoin 100 mg PO BID UTI #6 caps monohydrate/macrocrystals 100 mg capsule (Macrobid) Allergies Allergy/AdvReac Type Severity Reaction Status Date / Time lorazepam (From Ativan) Allergy Unknown UNKNOWN Verified 03/20/25 21:35 Review of Systems Review of Systems: Unable to obtain secondary to the patient is both mentally and physically empiric Yes all other systems are reviewed and are negative PMFSH Past Medical History Attestation statement: The following information was validated with the patient. Social History Social History Advance Directives: No Advance Directives Information Provided: No Physical Exam ED Vital Signs: Vital Signs - 24 hr 03/20/25 21:33 03/21/25 00:28 Temperature 97.4 F 97.4 F Pulse Rate 68 68 Respiratory Rate 18 18 Blood Pressure 98/62 98/62 Pulse Oximetry 100 100 Oxygen Delivery Method Room Air Room Air BMI result Body Mass Index 19.6 Const Other: Alert Orientation/consciousness: oriented to person Resp Effort & Inspection: normal respiratory effort Cardio Other: Normal peripheral perfusion Skin Other: Warm dry no rash Neuro General: oriented to person and no focal motor deficits Extrem Other: Fleshy bleeding lesion on the plantar aspect of the left foot inferior to the 4th toe Psych Other: Cooperative, flat affect Procedures Laceration Laceration 1: Site: lower extremity Side (If applicable): left Size (cm): 1 Description: irregular Depth: simple, single layer Local Anesthetic: lidocaine 1% and with epi Amount of anesthesia used (mL): 2 Skin layer closed with: nylon Size (cm): 3-0 Number of sutures: 2 Technique: simple, interrupted Medical Decision Making Medical Decision Making [facility] Narrative: 49-year-old female who is both hearing and visually impaired, presents with her caregiver with a bleeding blister on the sole of her left foot. Patient was seen in December for a blood blister on the bottom of the left foot. Today, the patient's caregiver noticed bleeding at the same site, however, it appears that there is a potential growth at the site that has bleeding. Problem: Mental and physical impairment History: Per the caregiver I have considered the following differential diagnoses: Plantar wart, blister, hematoma, callus, laceration, osteomyelitis, ulceration Plan: I saw the patient when she was 1st assessed in December for similar presentation. At that time, she simply had a blister that was bleeding. Now, it appears as if she has some sort of lesion, perhaps it is a wart. The surface portion of the lesion essentially tore off, I was able to close the skin around the remainder of the lesion, she can follow up with Podiatry. I did obtain a screening x-ray, there was no evidence of osteomyelitis. I have independently reviewed the following tests: Left foot x-ray:Findings: No acute fracture or dislocation. No focal bony abnormality. No radiopaque foreign body. Impression: No acute bony abnormality Differential Diagnosis Differential Diagnoses: The differential diagnosis associated with the presentation includes See [facility] Admission/Observation Consideration of admission/observation: Escalation of care including admission/observation considered Not applicable Radiology Impression Discussion of test interpretation with radiology: I have reviewed the radiologist's reading. Discharge Plan Discharge Clinical Impression: Foot lesion Patient Disposition: Home, Self-Care Additional Instructions: It appears you have a growth on the bottom of the left foot. Two sutures were placed to control the bleeding. You need to follow up with Podiatry, I am providing you with a 1 of our contacts. Call Sunday to make an appointment. The stitches can be removed in 2 days. Prescriptions: No Action nitrofurantoin monohyd/m-cryst [Macrobid] 100 mg capsule 100 mg PO BID Qty: 6 0RF Rx Instructions: must administer with a meal/food Referrals: Ramiro Bautista DPM [Dental Assistant, Podiatry] Referral Note: Question of bleeding growth plantar surface left foot Interventions: ED Discharge Assessment Last Done: 03/21/25 00:28 Discharge Date/Time: 03/21/25 00:29 Print Language: Romanian Sign Language
[2025-03-21 00:28] VITALS: BP 98/62; PULSE 68; RESP 18; TEMP 36.3; O2SAT 100
== END 2025-03-21 00:29 | disposition home or self-care (01) ==
PROVIDERS: Emergency Provider Emergency Medicine
DX: S91.302A Unspecified open wound, left foot, initial encounter (principal); X58.XXXA Exposure to other specified factors, initial encounter; Y93.9 Activity, unspecified; Y92.009 Unspecified place in unspecified non-institutional (private) residence as the place of occurrence of the external cause; Y99.9 Unspecified external cause status
CPT/HCPCS: 12001; 73630; 99282; 99284

== ENCOUNTER → 2025-03-20 22:30 | Outpatient (BNV) | payer MEDICARE, MEDICAID, SELFPAY | PROVIDERS: Emergency Provider Emergency Medicine; Visit Provider Radiology Diagnostic Radiology | DX: Z03.89 Encounter for observation for other suspected diseases and conditions ruled out (principal) | CPT/HCPCS: 73630 ==

== ENCOUNTER 2025-03-27 09:41 | Outpatient (AMB) | payer MEDICARE, MEDICAID, SELFPAY ==
[2025-03-27 09:49] VITALS: BMI 20.3
--- NOTE | 2025-03-27 09:49 | A.OFFVIS_ITS ---
Vital Signs 3 03/27/25 09:49 Height 5 ft 4 in Weight 118 lb BMI 20.3 Intake Visit Reasons: ED follow up/ Foot lesion left foot. Intake Note: Eva is a 50 year old female who presents today as a new patient for an evaluation of her left foot foot lesion. The lesion is located on the plantar aspect slightly below the 4th toe. She has not tried any medications to treat this however she did have stitches to the area and has since been removed. No pain at this time. Allergies lorazepam (From Ativan) Allergy (Unknown, Verified 03/27/25 09:51) UNKNOWN HPI HPI ED follow up/ Foot lesion left foot.: Details: The patient is a 50 year old female who is visually impaired and audibly impaired, presenting for evaluation of a recurring left foot lesion. Foot Lesion: The patient developed what appeared to be a blister on her left foot around January 04. The blister popped and bled persistently, prompting an ER visit where it healed well with local wound care utilizing a mesh dressing. The lesion recently recurred, noticed by her caregiver after finding blood on the floor. It is described as currently being a hard piece of skin that is not painful. During the ER visit, a biopsy was mentioned as a possibility, and an X-ray of the foot was performed, which was reported as normal. Onychomycosis: The patient has a history of toenail fungus, for which her mother had tried various remedies with little success. The condition is present on both feet but does not affect every toe. Past treatments included [id number] nail polishes. Tinea Pedis/Dermatitis: The patient experiences severely dry skin on her feet. During the summer, she develops sweaty feet with red dots, which is suspected to be athlete's foot. Previous attempts to manage this with moisturizers were not effective and may have worsened the condition. Seizure Disorder: The patient has a history of a seizure disorder, which is controlled with minimal medication. She has been seizure-free for over three years, with seizures typically occurring only when she is ill. Medical History: - Seizure disorder: Controlled with minimal medication, seizure-free for over 3 years. - History of gait abnormality: She was evaluated by orthopedics in the past, and surgical correction was declined. - History of foot calluses. - Xerosis (dry skin) of feet. - History of using shoe inserts. Social History: - The patient has known her caregiver since 2001 and has lived with her for the past 15 years. - She lives in a home with her caregiver and the caregiver's son. - Her brother is involved in her care and purchased special fitted [employer] shoes for her. - She has a hearing impairment. Family History: - Mother: in 2020. Review of Systems Const All systems reviewed & are unremarkable except as noted in HPI and below Physical Exam Vital Signs: BMI result Body Mass Index 20.3 Extrem Other: *Bilateral Lower Extremity Focused Foot Exam Vascular: DP/PT 2/4, CFT<3s to digits, TG warm to cool, no pedal edema, pedal hair present Derm: Skin: - On the plantar aspect of the left 4th digit, there is a solitary, well- circumscribed, 3mm bright red, pedunculated papule. Moist, glistening surface with a thin, peripheral hyperkeratotic tissue. Sanguineous drainage upon palpation. No surrounding induration, erythema, or clinical signs of infection. - Diffuse annular scaling bilateral feet. Interdigital spaces: Clear, no maceration or fungal infection. Nails: Discolored, thickened, dystrophic nails to bilateral feet. Neuro: Protective sensation grossly intact to bilateral lower extremities Msk: Deformities: No evidence of hammertoes, bunions, Charcot changes, or other structural abnormalities. Muscle strength: 5/5 in all muscle groups. Gait: Normal, no antalgic or steppage gait observed. Footwear Assessment: Shoes inspected; appropriate fit, no excessive wear, or foreign objects noted. Office Procedures AMB Debridement/Avulsion Podia Details: Procedure: chemical cauterization of granuloma Depth: subcutaneous layer Indication: left foot pyogenic granuloma Anesthesia: lidocaine 2% jelly Description: The site was prepped using alcohol/cleanser. Silver nitrate was used to cauterize the lesion. Hemostasis was achieved wiht the silver nitrate. Dressings: Bacitracin, band-aid Tolerance: Patient tolerated procedure well, no immediate complications. 00158 - Chemical Cauterization of Granulation Tissue Procedure code (CPT) selection complete Office Meds lidocaine HCl 2 % mucosal jelly in applicator Performing Provider: Ramiro Bautista DPM Performing Location: [facility] Pod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 Bone density is within normal limits. Normal anatomy. No evidence of swelling, foreign body, or calcifications. I personally reviewed the imaging and my findings are listed above. Assessment & Plan Assessment & Plan (1) Pyogenic granuloma: Code(s): L98.0 - Pyogenic granuloma Category: Medical Plan: * The lesion is suspected to be a pyogenic granuloma. * A culture was taken to rule out underlying infection. * The lesion was debrided and treated with silver nitrate in the office after application of topical lidocaine. * A bacitracin/band-aid was applied, and the patient's caregiver was instructed to keep the area covered. * If the lesion does not resolve after several applications of chemical cautery, surgical excision under local anesthesia in a hospital setting will be considered. * Follow up in 2-3 weeks. (2) Tinea pedis: Code(s): B35.3 - Tinea pedis Category: Medical Qualifiers: Laterality: bilateral Qualified Code(s): B35.3 - Tinea pedis Plan: * Rx clotrimazole-betamethasone (3) Onychomycosis: Code(s): B35.1 - Tinea unguium Category: Medical Plan: * Rx ciclopirox * Treatment with oral antifungals is a future option but is less preferred due to the need for blood work Orders: Orders 2 AMB Debridement/Avulsion Podiatry 03/27/25 L98.0 - Pyogenic granuloma Routine Culture w Gram Stain 03/27/25 L98.0 - Pyogenic granuloma Medications: New 2 ciclopirox 8% Apply over nails once per day. Remove build-up at the end of the week. 1 appl topical BEDTIME 6.6 mL 3RF fungal nails 4 months B35.1 - Tinea unguium clotrimazole-betamethasone 1-0.05 % apply to the bottom and sides of both feet 1 appl topical BID 45 grams 3RF athlete's foot 4 weeks B35.3 - Tinea pedis Discontinued 2 nitrofurantoin monohyd/m-cryst 100 mg (Macrobid) must administer with a meal/food Discontinued Reason: Patient no longer taking 100 mg PO BID 6 caps 0RF UTI Coding Level of Care Code New Pt Level 4 (95832) Diagnoses Pyogenic granuloma L98.0 Tinea pedis of both feet B35.3 Laterality: bilateral Onychomycosis B35.1 CPT Codes Skin Debridement - CPT: 76898 - Chemical Cauterization of Granulation Tissue ([id number])
--- OUTSIDE RECORDS SUMMARY | 2025-03-27 10:32 | XMS_ITS | Encounter Summary ---
Author Organization [facility] Address [address] [place] [phone] Phone Care Team Providers Care Prosecuting Attorney Name Role Phone Jean Brennan MD Unavailable [phone] Tera Mccollum MD Primary Care Provider [phone] Encounter Details Date Type Department Care Team (Late st Contact Info) Description 03/23/2025 Telephone [facility] [address] [place], [place] [phone] Tera Mccollum MD [address] [place], [place] [phone] [email or web address] Social History Tobacco Use Types Packs/Day Years [...] on file Sexual Orientation Not on file documented as of this encounter Progress Notes * Romain Butterfield - 03/23/2025 3:51 PM EST Err documented in this encounter Plan of Treatment Upcoming Encounters Date Type Department Care Team (Late st Contact Info) Description 04/13/2025 4:15 PM EST Office Visit [facility] [address] [place] [phone] Tera Mccollum MD [address] [place] [phone] 12/25/2025 8:30 AM EDT Office Visit [address] [address] Tera Mccollum MD [address] [place] [address] [phone] documented as of this encounter Visit Diagnoses Not on filedocumented in this encounter Additional Health Concerns Assessment Noted Time PHQ-2 Depression Total Score: 0 12/25/19 25 7:42 AM EDT documented as of this encounter Care Teams Prosecuting Attorney Relationship Specialty Start Date End Date Tera Mccollum MD [address] [place] [address] [phone] PCP - General Internal Medicine 09/18/22 Jean Brennan MD [address] [place] [phone] Psychiatry 07/21/21 documented as of this encounter Additional Source Comments The information contained in this document represents components of the legal health record. It is not the complete legal health record.[facility]
--- OUTSIDE RECORDS SUMMARY | 2025-03-27 10:32 | XMS_ITS | Clinical Summary ---
Author Organization [facility] Address [address] [place] [phone] Phone Care Team Providers Care Accountant Helper Name Role Phone Jean Brennan MD Unavailable Tera Mccollum MD Primary Care Provider [phone] Allergies Active Allergy Reactions Criticality Noted Date [...] Seizure disorder managed by Dr. Kuo from [facility] neurology. Assessment & Plan (07/17/2022 1:58 [...] Encounters Date Type Department Care Team Description 03/23/2025 Telephone [facility] [address] [facility] [place] [address] Tera Mccollum MD from Last 3 Months Immunizations Immunization Administration [...] Description 04/13/2025 4:15 PM EST Office Visit [facility] [address] [place] [address] Tera Mccollum MD [address] [place] [address] [email or web address] 12/25/2025 8:30 AM EDT Office Visit [facility] [address] [facility] [place] [address] Tera Mccollum MD [address] [place] [address] [place] [phone] [email or web address] Health Maintenance Due Date Last Done Comments [...] examination at a health care facility Dyslipidemia MAMMOGRAPHY Routine 12/25/2023 1:54 PM EDT COLONOSCOPY FOR RESULT ENTRY ONLY Routine 11/13/2023 1:02 PM EDT PAP TEST Routine 12/30/2020 from Last 3 Months or Most Recently Relevant to Health Maintenance Results * (ABNORMAL) Lipid panel (12/24/2024 8:45 AM EDT) HDL 75 mg/dL [facility] Comment: Interpretation <40 mg/dL: Low HDL cholesterol (major risk factor for CHD) Greater than or equal to 60 mg/dL: High HDL cholesterol ( negative risk factor for CHD) HDL - cholesterol is affected by a number of factors, e.g. smoking, excerise, hormones, sex and age. CHOLESTEROL 201 0 - 240 mg/dL [facility] TRIGLYCERIDES 58 30 - 160 mg/dL [facility] LDL 114 50 - 129 mg/dL [facility] Comment: LDL levels in terms of risk for coronary heart disease: <100 mg/dL: Optimal 100-129 mg/dL: Near or above optimal 130-159 mg/dL: Borderline high 160-189 mg/dL: High >190 mg/dL: Very High CARDIAC RISK RATIO 2.7(L) 3.3 - 4.4 [facility] Blood 12/24/2024 8:45 AM EDT 12/24/2024 8:52 AM EDT us Tera Mccollum MD LAB BLOOD BKR ORDERABLES Final R esult [address] [phone] * MAMMOGRAPHY FOR RESULT ENTRY ONLY (12/25/2023 1:54 PM EDT) us Tera Mccollum MD HEALTH MAINTENANCE Final Result * COLONOSCOPY FOR RESULT ENTRY ONLY (11/13/2023 1:02 PM EDT) us Historical Provider HEALTH MAINTENANCE Edited Result - Final * Pap Test (12/30/2020) Result - External See Scanned Results Comment:NILM, HPV neg Historical Provider CYTOLOGY ORDERABLES Edite d Result - Final from Last 3 Months or Most Recently Relevant to Health Maintenance Insurance MEDICARE PART A & B Member Subscriber Plan / Payer (Ef fective 1999-Present) Name:Eva Tony Member ID:[id number] Relation to Subscriber:Self Name:Eva Tony Subscriber ID:[id number] Payer ID:[id number] Group ID:Not on file Type:Medicare Address: [facility] [employer] [facility] [address] [address] [facility] MEDICARE PART A & [place] & [facility] [place] & [facility] MEDICARE PART A & B HEALTH MEDICARE PART A & [facility] Care Teams Accountant Helper Relationship Specialty Start Date End Date Tera Mccollum MD [address] [place] [phone] [email or web address] PCP - General Internal Medicine 09/18/22 Jean Brennan MD [address] [place] [phone] Psychiatry 07/21/21 Additional Source Comments The information contained in this document represents components of the legal health record. It is not the complete legal health record.[facility]
== END 2025-03-27 10:21 | disposition home or self-care (01) ==
LOC: HO.HPODS 09:42
PROVIDERS: Visit Provider Student in an Organized Health Care Education/Training Program
DX: L98.0 Pyogenic granuloma (principal); B35.3 Tinea pedis; B35.1 Tinea unguium
CPT/HCPCS: 17250; 99204

== ENCOUNTER 2025-03-27 09:41 | Outpatient (REF) | payer MEDICARE, MEDICAID, SELFPAY | END 2025-03-27 09:42 | disposition home or self-care (01) | LOC: HO.LAB 09:41 | PROVIDERS: Visit Provider Student in an Organized Health Care Education/Training Program | DX: L98.0 Pyogenic granuloma (principal); B35.3 Tinea pedis; B35.1 Tinea unguium | CPT/HCPCS: 17250; 87070; 87077; 87186; 87205; 99202 ==